=== PATIENT | female | born 1970 | race Asian ===

== ENCOUNTER 2023-02-13 20:46 | Inpatient (IN) | payer OTHER ==
[~2023-02-13] VITALS: Ht 157.5 cm; Wt 51.3 kg
[2023-02-13 21:09] VITALS: BP_SYST 199; PULSE 83; RESP 20; TEMP 97.7; O2SAT 97
[2023-02-13] MEDS ORDERED: cloNIDine HCL 0.1 MG TABLET PO ONE ×2 (22:30→23:45)
[2023-02-13] MEDS ORDERED: cloNIDine HCL 0.1 MG TABLET ONE (22:32)
[2023-02-13 22:59] LABS: BILIRUBIN,URINE NEGATIVE (NEGATIVE); BLOOD, URINE 3+ (NEGATIVE); CLARITY/URINE SL CLOUDY (CLEAR); COLOR,URINE YELLOW (YELLOW); GLUCOSE,URINE NEGATIVE (NEGATIVE); KETONES,URINE NEGATIVE (NEGATIVE); LEUKOCYTE ESTERASE ,URINE NEGATIVE (NEGATIVE); NITRITE, URINE NEGATIVE (NEGATIVE); PROTEIN URINE TRACE (NEGATIVE)
[2023-02-13 23:38] LABS: BACTERIA,URINE None Seen /HPF (None Seen); RBC,URINE >100 /HPF (0-3); WBC,URINE 0-3 /HPF (0-3)
[2023-02-13 23:42] LABS: BARBITURATE, URINE NEGATIVE (NEG <=200); BENZODIAZEPINE, URINE NEGATIVE (NEG <=150); CANNABINOID, URINE NEGATIVE (NEG <=50); COCAINE, URINE NEGATIVE (NEG <=150); METHAMPHETAMINES SCREEN,URINE NEGATIVE (NEG <=500); OPIATE, URINE NEGATIVE (NEG <=100); PHENCYCLIDINE SCREEN,URINE NEGATIVE (NEG <=25); URINE AMPHETAMINE NEGATIVE (NEG <=500); URINE METHADONE NEGATIVE (NEG <=200); URINE OXYCODONE SCREEN NEGATIVE (NEG <=100); URINE PROPOXYPHENE SCREEN NEGATIVE (NEG <=300)
[2023-02-13 23:43] LABS: UR TRICYCLIC ANTIDEPRESSANTS NEGATIVE (NEG <=300)
[2023-02-13 23:59] LABS: BASOPHILS % (AUTO) 0.9 % (0.0-2.0); EOSINOPHILS # (AUTO) 0.1 K/uL (0.0-0.4); EOSINOPHILS % (AUTO) 1.2 % (0.0-4.0); HEMATOCRIT 42.7 % (36-48); HEMOGLOBIN 13.6 g/dL (12.0-16.0); LYMPHOCYTES % (AUTO) 41.9 % (20.5-51.5); MEAN CORPUSCULAR HEMOGLOBIN 30 pg (27-31); MEAN CORPUSCULAR HGB CONC 32 % (32-36); MEAN CORPUSCULAR VOLUME 93 fL (79.0-98.0); MONOCYTES # (AUTO) 0.6 K/uL (0.0-1.0); MONOCYTES % (AUTO) 11.4 % (1.7-9.3); NEUTROPHILS # (AUTO) 2.2 K/uL (1.8-7.7); NEUTROPHILS % (AUTO) 44.6 % (40.0-70.0); PLATELET COUNT (AUTO) 255 K/uL (130-430); RED BLOOD CELL COUNT(AUTO) 4.59 MIL/uL (4.2-6.2); RED CELL DISTRIBUTION WIDTH 13.8 % (9.0-15.0); WHITE BLOOD COUNT (AUTO) 4.9 K/uL (4.8-10.8)
[2023-02-14 00:02] LABS: ANION GAP 5 (5-15); CALCIUM 9.1 mg/dL (8.4-11.0); CARBON DIOXIDE 27 mmol/L (23-29); CHLORIDE 102 mmol/L (98-107); CREATININE 0.93 mg/dL (0.55-1.30); GFR AFRICAN AMERICAN 82 mL/min (>90); GLUCOSE 104 mg/dL (74-106); POTASSIUM 3.5 mmol/L (3.5-5.1); SODIUM SERUM 134 mmol/L (136-145); UREA NITROGEN, BLOOD 15 mg/dL (8-21)
[2023-02-14 00:08] LABS: ALANINE AMINOTRANSFERASE 21 U/L (12-78); ALBUMIN 3.6 g/dL (3.4-4.8); ASPARTATE AMINOTRANSFERASE 13 U/L (10-37); TOTAL BILIRUBIN 0.4 mg/dL (0.0-1.0); TOTAL PROTEIN, SERUM 6.8 g/dL (6.4-8.3)
[2023-02-14 00:13] LABS: GFR NON AFRICAN-AMERICAN 68 mL/min (>90)
[2023-02-14] MEDS ORDERED: ONDANSETRON HCL 4 MG/2 ML VIAL IVP PRN (03:30)
[2023-02-14] MEDS ORDERED: hydrALAZINE HCL 20 MG/ML VIAL IVP PRN (03:30)
[2023-02-14 04:54] VITALS: BP_SYST 155; PULSE 62; RESP 18; TEMP 97.5; O2SAT 95
[2023-02-14 07:30] VITALS: BP_SYST 144; PULSE 62; RESP 16; TEMP 97.7; O2SAT 96
[2023-02-14] MEDS ORDERED: LISINOPRIL 10 MG TABLET (PRINIVIL) PO SCH (09:00)
[2023-02-14 11:30] VITALS: BP_SYST 146; RESP 16; TEMP 97; O2SAT 98
[2023-02-14] MEDS ORDERED: LISI10TA29 PO (13:25)
[2023-02-14] MEDS ORDERED: CLON0.1T PO (13:25)
[2023-02-14 15:12] VITALS: BP_SYST 147; PULSE 64; RESP 16; TEMP 97.3; O2SAT 98
[2023-02-14 15:30] VITALS: BP_SYST 147; PULSE 64; RESP 16; TEMP 97.3; O2SAT 98
== END 2023-02-14 16:40 | disposition home or self-care (01) | DRG 305 ==
LOC: EDBD 20:46 → SED 20:46 → SMU 02-14 03:21
PROVIDERS: ADMIT Family Medicine; ATTEND Family Medicine
DX: I16.0 Hypertensive urgency (principal); I10 Essential (primary) hypertension; F17.200 Nicotine dependence, unspecified, uncomplicated
CPT/HCPCS: 36415; 71045; 80053; 80307; 81000; 81001; 83880; 84484; 85025; 99285